=== PATIENT | female | born 1960 | race Two or more races ===

== ENCOUNTER 2022-01-26 15:31 | Outpatient (CLI) | payer OTHER | END 2022-01-26 15:41 | disposition home or self-care (01) | LOC: RAD 15:31 | PROVIDERS: ATTEND Orthopaedic Surgery | DX: M23.51 Chronic instability of knee, right knee (principal) ==

== ENCOUNTER 2022-06-15 09:22 | Outpatient (CLI) | payer OTHER | END 2022-06-15 09:23 | disposition home or self-care (01) | LOC: RAD 09:22 | DX: S83.511A Sprain of anterior cruciate ligament of right knee, initial encounter (principal) ==